=== PATIENT | male | born 2000 | race Caucasian/White ===

== ENCOUNTER 2022-10-15 21:14 | Inpatient (IN) | payer OTHER ==
[2022-10-15 22:04] LABS: #Basophils 0.1 10x3/uL (0.0-0.2); #Eosinphils 0.1 10x3/uL (0.0-0.5); #Monocytes 0.9 10x3/uL (0.0-1.1); %Eosinophils 1.3 % (0.0-6.0); %Lymphocytes 26.2 % (18.0-47.0); %Monocytes 10.3 % (0.0-10.0); Hemoglobin 14.2 g/dL (13.5-17.5); Mean Corpuscular HGB CONC 34.4 g/dL (32.0-36.0); Mean Corpuscular Hemoglobin 30.9 pg (27.0-33.0); Mean Corpuscular Volume 89.8 fl (81.2-95.1); Platelet Count 245 10x3/uL (150-450); RBC Distribution Width 12.3 % (11.5-14.5); White Blood Cell (WBC) Count 8.3 10x3/uL (3.5-10.5)
[2022-10-15 22:11] LABS: ALT (SGPT) 641 U/L (8-55); Albumin 4.5 g/dL (3.5-5.0); Alkaline Phosphatase 57 U/L (40-110); Anion Gap 15 mmol/L (10-20); BUN (Urea Nitrogen) 19 mg/dL (8.9-20.6); Calc. Creatinine Clearance 0 mL/min (70-130); Calcium 8.8 mg/dL (7.8-10.44); Carbon Dioxide 25 mmol/L (22-29); Chloride 103 mmol/L (98-107); Estimated GFR 80; Globulin 2.2 g/dL (2.4-3.5); Glucose 72 mg/dL (70-105); Potassium 4.4 mmol/L (3.5-5.1); Protein, Total 6.7 g/dL (6.0-8.3); Sodium 139 mmol/L (136-145)
[2022-10-15] MEDS ORDERED: Diazepam 10 MG/2 ML SYRINGE ONE (22:35)
[2022-10-15 22:38] LABS: AST (SGOT) 2921 U/L (5-34)
[2022-10-15 22:56] LABS: Bilirubin Neg (Negative); Blood, Urine 250 (Negative); Clarity Clear (Clear); Glucose, Urine (Dipstick) Normal (Negative); Ketone, Urine Negative (Negative); Leukocyte 25 (Negative); Nitrite Negative (Negative); Protein, Urine (Dipstick) 100 mg/dl (Neg-Trace)
[2022-10-15 23:13] LABS: Bacteria/HPF None Seen HPF (None Seen); RBC/HPF 0-3 HPF (0-3); Squamous Epithelial 0-3 HPF (0-3); WBC/HPF None Seen HPF (0-3)
[2022-10-15 23:21] LABS: CK (CPK) 34446 U/L (30-200)
[2022-10-16] MEDS ORDERED: Ondansetron PF 4 MG/2 ML Vial IVP PRN (00:10)
[2022-10-16] MEDS ORDERED: Guaifenesin DM 100-10/5 ML UDCUP PO PRN (00:10)
[2022-10-16] MEDS ORDERED: Calcium Carbonate 500 MG ChewTAB PO PRN (00:10)
[2022-10-16] MEDS ORDERED: Zolpidem Tartrate 5 MG TAB PO PRN (00:10)
[2022-10-16] MEDS ORDERED: Senokot S 8.6-50 MG TAB PO PRN (00:10)
[2022-10-16] MEDS ORDERED: Ibuprofen 400 MG TAB PO PRN (00:13)
[2022-10-16] MEDS ORDERED: traMADol HCl 50 MG TAB PO PRN (00:13)
[2022-10-16] MEDS: Lactated Ringer's 1,000 ML IV SCH ×7 (02:20→21:27)
[2022-10-16 03:55] LABS: #Basophils 0.1 10x3/uL (0.0-0.2); #Eosinphils 0.2 10x3/uL (0.0-0.5); #Monocytes 0.5 10x3/uL (0.0-1.1); #Neutrophils 2.8 10x3/uL (1.5-8.4); %Basophils 1.3 % (0.0-2.0); %Eosinophils 2.6 % (0.0-6.0); %Lymphocytes 41.9 % (18.0-47.0); %Monocytes 8.5 % (0.0-10.0); %Neutrophils 45.4 % (40.0-75.0); Hemoglobin 12.5 g/dL (13.5-17.5); Mean Corpuscular HGB CONC 34.1 g/dL (32.0-36.0); Mean Corpuscular Hemoglobin 30.8 pg (27.0-33.0); Mean Corpuscular Volume 90.4 fl (81.2-95.1); Mean Platelet Volume 11.3 fl (7.4-10.4); Platelet Count 213 10x3/uL (150-450); RBC Distribution Width 12.3 % (11.5-14.5); Red Blood Cell (RBC) Count 4.06 10x6/uL (4.32-5.72); White Blood Cell (WBC) Count 6.1 10x3/uL (3.5-10.5)
[2022-10-16 04:05] LABS: ALT (SGPT) 508 U/L (8-55); AST (SGOT) 2852 U/L (5-34); Albumin 3.7 g/dL (3.5-5.0); Alkaline Phosphatase 49 U/L (40-110); Anion Gap 14 mmol/L (10-20); BUN (Urea Nitrogen) 18 mg/dL (8.9-20.6); Bilirubin, Total 0.6 mg/dL (0.2-1.2); Calc. Creatinine Clearance 0 mL/min (70-130); Calcium 8.3 mg/dL (7.8-10.44); Carbon Dioxide 22 mmol/L (22-29); Chloride 108 mmol/L (98-107); Estimated GFR 105; Globulin 1.8 g/dL (2.4-3.5); Glucose 112 mg/dL (70-105); Potassium 3.9 mmol/L (3.5-5.1); Protein, Total 5.5 g/dL (6.0-8.3); Sodium 140 mmol/L (136-145)
[2022-10-16 05:04] LABS: CK (CPK) Greater than 40000 U/L (30-200)
[2022-10-16] MEDS ORDERED: Lactated Ringer's 1,000 ML IV SCH ×2 (08:30→16:30)
[2022-10-16] MEDS: Bupropion 150 MG XL TAB PO SCH (11:07)
[2022-10-16 12:31] VITALS: BMI 24.3
[2022-10-17 05:07] LABS: ALT (SGPT) 478 U/L (8-55); AST (SGOT) 2146 U/L (5-34); Albumin 3.8 g/dL (3.5-5.0); Alkaline Phosphatase 47 U/L (40-110); Anion Gap 13 mmol/L (10-20); BUN (Urea Nitrogen) 10 mg/dL (8.9-20.6); Bilirubin, Total 0.9 mg/dL (0.2-1.2); Calc. Creatinine Clearance 153 mL/min (70-130); Calcium 8.7 mg/dL (7.8-10.44); Carbon Dioxide 23 mmol/L (22-29); Chloride 106 mmol/L (98-107); Estimated GFR 120; Glucose 80 mg/dL (70-105); Protein, Total 5.8 g/dL (6.0-8.3); Sodium 138 mmol/L (136-145)
[2022-10-17 05:35] LABS: CK (CPK) Greater than 40000 U/L (30-200)
[2022-10-17 08:29] LABS: Magnesium 1.8 mg/dL (1.6-2.6); Phosphorus 4.1 mg/dL (2.3-4.7)
[2022-10-17] MEDS: Lactated Ringer's 1,000 ML IV SCH ×4 (08:32→23:12)
[2022-10-17] MEDS: Bupropion 150 MG XL TAB PO SCH (08:48)
[2022-10-18 07:53] LABS: #Basophils 0.1 10x3/uL (0.0-0.2); #Eosinphils 0.1 10x3/uL (0.0-0.5); #Monocytes 0.5 10x3/uL (0.0-1.1); #Neutrophils 3.9 10x3/uL (1.5-8.4); %Eosinophils 2.3 % (0.0-6.0); %Lymphocytes 24.5 % (18.0-47.0); %Monocytes 7.7 % (0.0-10.0); Hemoglobin 14.4 g/dL (13.5-17.5); Mean Corpuscular Volume 91.2 fl (81.2-95.1); Mean Platelet Volume 10.9 fl (7.4-10.4); Platelet Count 219 10x3/uL (150-450); RBC Distribution Width 12.4 % (11.5-14.5); Red Blood Cell (RBC) Count 4.65 10x6/uL (4.32-5.72); White Blood Cell (WBC) Count 6.1 10x3/uL (3.5-10.5)
[2022-10-18 08:12] LABS: ALT (SGPT) 405 U/L (8-55); AST (SGOT) 1110 U/L (5-34); Alkaline Phosphatase 49 U/L (40-110); Anion Gap 14 mmol/L (10-20); BUN (Urea Nitrogen) 12 mg/dL (8.9-20.6); Bilirubin, Total 0.6 mg/dL (0.2-1.2); Calc. Creatinine Clearance 138 mL/min (70-130); Calcium 9.5 mg/dL (7.8-10.44); Carbon Dioxide 25 mmol/L (22-29); Chloride 107 mmol/L (98-107); Estimated GFR 106; Globulin 2.3 g/dL (2.4-3.5); Glucose 88 mg/dL (70-105); Potassium 4.3 mmol/L (3.5-5.1); Protein, Total 6.3 g/dL (6.0-8.3); Sodium 142 mmol/L (136-145)
[2022-10-18] MEDS: Bupropion 150 MG XL TAB PO SCH (08:38)
[2022-10-18] MEDS: Lactated Ringer's 1,000 ML IV SCH ×5 (08:39→21:13)
[2022-10-19 05:26] LABS: #Basophils 0.1 10x3/uL (0.0-0.2); #Eosinphils 0.2 10x3/uL (0.0-0.5); #Monocytes 0.5 10x3/uL (0.0-1.1); #Neutrophils 4.8 10x3/uL (1.5-8.4); %Basophils 1.2 % (0.0-2.0); %Eosinophils 2.9 % (0.0-6.0); %Monocytes 5.9 % (0.0-10.0); %Neutrophils 61.5 % (40.0-75.0); Hemoglobin 13.5 g/dL (13.5-17.5); Mean Corpuscular Hemoglobin 31.2 pg (27.0-33.0); Mean Corpuscular Volume 91.7 fl (81.2-95.1); Mean Platelet Volume 11.4 fl (7.4-10.4); Platelet Count 213 10x3/uL (150-450); RBC Distribution Width 12.1 % (11.5-14.5); Red Blood Cell (RBC) Count 4.33 10x6/uL (4.32-5.72); White Blood Cell (WBC) Count 7.8 10x3/uL (3.5-10.5)
[2022-10-19 05:31] LABS: ALT (SGPT) 334 U/L (8-55); AST (SGOT) 621 U/L (5-34); Albumin 3.9 g/dL (3.5-5.0); Alkaline Phosphatase 49 U/L (40-110); Anion Gap 17 mmol/L (10-20); BUN (Urea Nitrogen) 16 mg/dL (8.9-20.6); Bilirubin, Total 0.3 mg/dL (0.2-1.2); Calc. Creatinine Clearance 140 mL/min (70-130); Calcium 9.2 mg/dL (7.8-10.44); Carbon Dioxide 24 mmol/L (22-29); Chloride 105 mmol/L (98-107); Estimated GFR 107; Glucose 77 mg/dL (70-105); Potassium 3.9 mmol/L (3.5-5.1); Protein, Total 5.9 g/dL (6.0-8.3); Sodium 142 mmol/L (136-145)
[2022-10-19 05:53] LABS: CK (CPK) 8380 U/L (30-200)
[2022-10-19] MEDS: Lactated Ringer's 1,000 ML IV SCH (07:17)
[2022-10-19] MEDS ORDERED: Lactated Ringer's 1,000 ML IV SCH (09:31)
[2022-10-19] MEDS: Bupropion 150 MG XL TAB PO SCH (09:42)
[2022-10-19 15:41] VITALS: BP 128/68; TEMP 98.1
== END 2022-10-19 16:10 | disposition home or self-care (01) | DRG 558 ==
LOC: CSHERS 21:14 → CSHERHOLD 10-16 01:24 → CSHTELE 10-16 09:11
PROVIDERS: ADMIT Student in an Organized Health Care Education/Training Program; ATTEND Internal Medicine
DX: M62.82 Rhabdomyolysis (principal); N17.9 Acute kidney failure, unspecified; E86.0 Dehydration; R74.01 Elevation of levels of liver transaminase levels; F41.9 Anxiety disorder, unspecified; Z71.51 Drug abuse counseling and surveillance of drug abuser; Z79.899 Other long term (current) drug therapy; Z90.89 Acquired absence of other organs; Z72.0 Tobacco use; Z71.6 Tobacco abuse counseling; F12.10 Cannabis abuse, uncomplicated; F90.9 Attention-deficit hyperactivity disorder, unspecified type
CPT/HCPCS: 36415; 71045; 80053; 81003; 81015; 82550; 83690; 83735; 84100; 85025; J1650; J3360; J7120